=== PATIENT | male | born 1960 | race Caucasian/White ===

== ENCOUNTER → 2017-10-09 14:36 | Outpatient (CLI) | payer OTHER ==
[2017-10-09 15:25] LABS: APTT 39.8 SECONDS (22.8-39.4); INR 1.01 (0.85-1.17); PROTIME 12.9 SECONDS (11.6-15.0)
[2017-10-09 15:26] LABS: D-DIMER-QUANTITATIVE 0.31 ug/mLFEU (0.20-0.54)
== END | disposition home or self-care (01) ==
LOC: D.LAB 14:36
PROVIDERS: Internal Medicine Hematology & Oncology
DX: D72.820 Lymphocytosis (symptomatic) (principal); S40.021A Contusion of right upper arm, initial encounter; J84.9 Interstitial pulmonary disease, unspecified; S40.022A Contusion of left upper arm, initial encounter